=== PATIENT | female | born 1980 | race Caucasian/White ===

== ENCOUNTER → 2018-07-03 | Outpatient (CLI) | payer OTHER ==
[2018-07-07 14:08] LABS: HPV 16 Negative (Negative); HPV 18 Negative (Negative); HPV OTHER HR TYPES Negative (Negative)
== END | disposition home or self-care (01) ==
LOC: LAB SHORT 15:54 → LAB 15:54
PROVIDERS: Obstetrics & Gynecology
DX: Z01.419 Encounter for gynecological examination (general) (routine) without abnormal findings (principal)
CPT/HCPCS: 87624; G0123

== ENCOUNTER → 2018-08-19 | Outpatient (CLI) | payer OTHER | END | disposition home or self-care (01) | LOC: PLD 08:02 → LAB SHORT 08:02 | DX: N72 Inflammatory disease of cervix uteri (principal) | CPT/HCPCS: 88305 ==

== ENCOUNTER 2018-11-26 10:22 | Emergency (ER) | payer OTHER ==
[~2018-11-26] VITALS: Ht 162.6 cm; Wt 62.6 kg
[2018-11-26] MEDS ORDERED: Robaxin-750750 MG PO (12:16)
[2018-11-26] MEDS ORDERED: NAPR550 PO (12:16)
== END 2018-11-26 12:29 | disposition home or self-care (01) ==
LOC: ER 10:22
DX: S46.912A Strain of unspecified muscle, fascia and tendon at shoulder and upper arm level, left arm, initial encounter (principal); X58.XXXA Exposure to other specified factors, initial encounter; Z91.030 Bee allergy status; Z88.0 Allergy status to penicillin; Z91.013 Allergy to seafood; Z79.899 Other long term (current) drug therapy; Z87.891 Personal history of nicotine dependence
CPT/HCPCS: 73030; 99283-25

== ENCOUNTER 2019-03-26 08:17 | Emergency (ER) | payer OTHER ==
[~2019-03-26] VITALS: Ht 157.5 cm; Wt 72.6 kg
[~2019-03-26 08:17] MED LIST: NAPR550 PO; Robaxin-750750 MG PO
[2019-03-26] MEDS ORDERED: BUSP10 PO (08:41)
[2019-03-26] MEDS ORDERED: GABA800 PO (08:41)
[2019-03-26] MEDS ORDERED: DIVA500ER PO (08:41)
[2019-03-26] MEDS ORDERED: DULO60 PO (08:42)
[2019-03-26] MEDS ORDERED: Procardia10 MG PO (08:42)
[2019-03-26] MEDS ORDERED: AMIT25 PO (08:42)
[2019-03-26] MEDS ORDERED: PRAZ1 (08:42)
[2019-03-26] MEDS ORDERED: PANT20 PO (08:43)
[2019-03-26] MEDS ORDERED: MAGNESIUM OXID500 MG PO (08:44)
[2019-03-26] MEDS ORDERED: FOLBIC RF TABL1 EACH PO (08:44)
[2019-03-26] MEDS ORDERED: VITAMIN D31000 UNI3 PO (08:44)
[2019-03-26 09:01] LABS: BASOPHILS ABSOLUTE AUTO 0.04 K/mm3 (0.00-0.23); BASOPHILS PERCENT AUTO 1 % (0-2); EOSINOPHILS ABSOLUTE AUTO 0.19 K/mm3 (0.00-0.68); EOSINOPHILS PERCENT AUTO 3 % (0-6); Hemoglobin 13.5 g/dL (11.5-16.0); IMMATURE GRAN ABSOLUTE AUTO 0.03 K/mm3 (0.00-0.10); IMMATURE GRAN PERCENT AUTO 1 % (0-1); LYMPHOCYTES ABSOLUTE AUTO 1.95 K/mm3 (0.84-5.20); LYMPHOCYTES PERCENT AUTO 35 % (21-46); MONOCYTES ABSOLUTE AUTO 0.37 K/mm3 (0.16-1.47); MONOCYTES PERCENT AUTO 7 % (4-13); Mean Corpuscular HGB 29.5 pg (26.0-34.0); Mean Corpuscular HGB Conc 32.9 g/dL (31.5-36.5); Mean Corpuscular Volume 90 fL (80-100); Mean Platelet Volume 9.9 fL (9.1-12.4); NEUTROPHILS ABSOLUTE AUTO 2.96 K/mm3 (1.96-9.15); NEUTROPHILS PERCENT AUTO 54 % (41-73); Platelet Count 271 K/mm3 (150-400); RDW Standard Deviation 42.6 fL (35.1-46.3); Red Blood Cell Count 4.57 M/mm3 (3.80-5.20); White Blood Cell Count 5.54 K/mm3 (4.00-11.30)
[2019-03-26 09:22] LABS: Source, Urine Clean Catch
[2019-03-26 09:32] LABS: Alanine Aminotransfer (ALT/SGP 20 U/L (12-78); Albumin, Blood 3.8 g/dL (3.4-5.0); Alk Phos 52 U/L (50-136); Anion Gap 8 mmol/L (6-16); Aspartate Aminotrans (AST/SGOT 9 U/L (12-37); Bilirubin, Total 0.2 mg/dL (0.1-1.0); Blood Urea Nitrogen 10 mg/dL (8-24); Bun/Creatinine Ratio 19.5 (12.0-20.0); CO2, Blood 24 mmol/L (21-32); Calcium, Blood 8.7 mg/dL (8.5-10.1); Chloride, Blood 109 mmol/L (98-108); Creatinine, Blood 0.51 mg/dL (0.40-1.00); Globulin, Blood 3.8 g/dL (2.2-4.0); Glomerular Filtration Rate >60 (60-); Glucose, Blood 96 mg/dL (70-99); Potassium, Blood 3.9 mmol/L (3.5-5.5); Sodium, Blood 141 mmol/L (136-145); Total Protein, Blood 7.6 g/dL (6.4-8.2)
[2019-03-26 09:33] LABS: Appearance, Urine Clear (Clear); Bilirubin, Urine Neg (Neg); Blood, Urine Neg (Neg); Color, Urine Yellow (P-Yellow); Glucose Qualitative, Urine Neg (Neg); Ketones, Urine Neg (Neg); Leukocyte Esterase, Urine Neg (Neg); Nitrite, Urine Neg (Neg); Protein, Urine Neg (Neg); Urobilinogen, Urine NORM (Normal)
== END 2019-03-26 10:10 | disposition home or self-care (01) ==
LOC: ER 08:17
PROVIDERS: Emergency Medicine
DX: M62.830 Muscle spasm of back (principal); F41.9 Anxiety disorder, unspecified; Z88.0 Allergy status to penicillin; Z79.899 Other long term (current) drug therapy
CPT/HCPCS: 36415; 80053; 81003; 81025; 85025; 96374; 96375; 99283-25; J2060; J3010

== ENCOUNTER 2020-03-03 06:12 | Day surgery (SDC) | payer OTHER ==
[~2020-03-03] VITALS: Ht 162.6 cm; Wt 57.8 kg
[~2020-03-03 06:12] MED LIST changes: +AMIT25 PO; +BUSP10 PO; +Bentyl10 MG PO; +CLEM1.34 PO; +DIVA125EC PO; +DIVA500ER PO; +DULO60 PO; +FOLBIC RF TABL1 EACH PO; +GABA800 PO; +MAGNESIUM OXID500 MG PO; +NIFE10 PO; +PANT20 PO; +PRAZ1; +PROBIOTIC PO; +Procardia10 MG PO; +VITAMIN B125000 MC1 PO; +VITAMIN D31000 UNI3 PO; +VITAMIN D325 MC3 PO; +Zofran4 MG PO
--- NOTE | 2020-03-03 06:48 | NUR ---
History, Chart, Medications and Allergies reviewed before start of procedure. Lungs clear T/O to Auscultation. Pre-Op teaching done. Pt verbalizes understanding. Patient confirms NPO status and agrees with scheduled surgery. Patient reports completing Chlorhexadine shower X2 prior to admission to hospital.
--- NOTE | 2020-03-03 11:13 | NUR ---
pt arrived to room via stretcher, a/o x 4, pleasant/cooperative, drowsy but answers questions appropriately. pt requested to use bedside commode, states her bladder feels full. SO in room with pt. post op vs commenced. pt denies nausea, no vomiting
--- NOTE | 2020-03-03 12:59 | NUR ---
post op vss, pt oob to commode x 2 since transferring to room. pt tolerating slow po intake, states stomach is mildly nauseous. pt voided 200 ml, some bleeding while on commode
--- NOTE | 2020-03-03 14:15 | NUR ---
provided pt with discharge instructions, removed peripheral IV wnl. pt voided x 3, ambulated into the bathroom, rates pain at 4-5/10 while moving, 1-2/10 while still, is able to sleep/rest. pt tolerated PO intake with no n/v. pt and state understanding of discharge instructions. pt transferred to awaiting medical transport via wheelchair, pt's carrying pt's belongings.
== END 2020-03-03 14:38 | disposition home or self-care (01) ==
LOC: ORSCMMR 06:12 → ORD 07:30 → ORSCMMR 07:30 → SURS 11:04 → ORSCMMR 11:04 → SURS 14:38 → ORSCMMR 14:38
PROVIDERS: Obstetrics & Gynecology
PROC: 0UT94ZZ Resection of Uterus, Percutaneous Endoscopic Approach (ICD-10-PCS; principal; 2020-03-03 07:30)
PROC: 0UT74ZZ Resection of Bilateral Fallopian Tubes, Percutaneous Endoscopic Approach (ICD-10-PCS; principal; 2020-03-03 07:30)
PROC: 8E0Y4CZ Robotic Assisted Procedure of Lower Extremity, Percutaneous Endoscopic Approach (ICD-10-PCS; principal; 2020-03-03 07:30)
PROC: 0UT14ZZ Resection of Left Ovary, Percutaneous Endoscopic Approach (ICD-10-PCS; principal; 2020-03-03 07:30)
DX: N87.9 Dysplasia of cervix uteri, unspecified (principal); N92.0 Excessive and frequent menstruation with regular cycle; K21.9 Gastro-esophageal reflux disease without esophagitis; R56.9 Unspecified convulsions; F41.9 Anxiety disorder, unspecified
CPT/HCPCS: 58571; S2900; J1100; J1580; J1885; J2250; J2370; J2405; J2704; J2765; J3010; J7120

== ENCOUNTER 2021-04-01 16:08 | Emergency (ER) | payer OTHER ==
[~2021-04-01] VITALS: Ht 162.6 cm; Wt 62.6 kg
[2021-04-01] MEDS ORDERED: OMEGA-3 FISH O1 EAC6 PO (17:22)
[2021-04-01] MEDS ORDERED: POTA8 PO (17:23)
[2021-04-01 17:41] LABS: BASOPHILS ABSOLUTE AUTO 0.02 K/mm3 (0.00-0.23); BASOPHILS PERCENT AUTO 0 % (0-2); EOSINOPHILS ABSOLUTE AUTO 0.02 K/mm3 (0.00-0.68); EOSINOPHILS PERCENT AUTO 0 % (0-6); Hemoglobin 14.4 g/dL (11.5-16.0); IMMATURE GRAN ABSOLUTE AUTO 0.05 K/mm3 (0.00-0.10); IMMATURE GRAN PERCENT AUTO 1 % (0-1); LYMPHOCYTES ABSOLUTE AUTO 1.41 K/mm3 (0.84-5.20); LYMPHOCYTES PERCENT AUTO 15 % (21-46); MONOCYTES ABSOLUTE AUTO 0.48 K/mm3 (0.16-1.47); MONOCYTES PERCENT AUTO 5 % (4-13); Mean Corpuscular HGB 30.1 pg (26.0-34.0); Mean Corpuscular HGB Conc 34.3 g/dL (31.5-36.5); Mean Corpuscular Volume 88 fL (80-100); Mean Platelet Volume 9.9 fL (9.1-12.4); NEUTROPHILS ABSOLUTE AUTO 7.49 K/mm3 (1.96-9.15); NEUTROPHILS PERCENT AUTO 79 % (41-73); Platelet Count 272 K/mm3 (150-400); RDW Standard Deviation 38.8 fL (35.1-46.3); Red Blood Cell Count 4.79 M/mm3 (3.80-5.20); White Blood Cell Count 9.47 K/mm3 (4.00-11.30)
[2021-04-01 18:12] LABS: Alanine Aminotransfer (ALT/SGP 19 U/L (12-78); Albumin/Globulin Ratio 1.2 (0.8-1.8); Alk Phos 64 U/L (50-136); Anion Gap 7 mmol/L (6-16); Aspartate Aminotrans (AST/SGOT 11 U/L (12-37); Bilirubin, Total 0.6 mg/dL (0.1-1.0); Blood Urea Nitrogen 9 mg/dL (8-24); Bun/Creatinine Ratio 18.6 (12.0-20.0); CO2, Blood 26 mmol/L (21-32); Calcium, Blood 8.8 mg/dL (8.5-10.1); Chloride, Blood 106 mmol/L (98-108); Creatinine, Blood 0.48 mg/dL (0.40-1.00); Globulin, Blood 3.4 g/dL (2.2-4.0); Glomerular Filtration Rate >60 (60-); Glucose, Blood 92 mg/dL (70-99); Potassium, Blood 3.8 mmol/L (3.5-5.5); Sodium, Blood 139 mmol/L (136-145); Total Protein, Blood 7.4 g/dL (6.4-8.2)
[2021-04-01 18:17] LABS: Influenza A, PCR NEGATIVE (NEGATIVE); Influenza B, PCR NEGATIVE (NEGATIVE); Resp Syncytial Virus, PCR NEGATIVE (NEGATIVE); SARS-Cov-2 (COVID-19) PCR, MMC NEGATIVE (NEGATIVE)
[2021-04-01 18:37] LABS: Source, Urine Clean Catch
[2021-04-01 18:45] LABS: Appearance, Urine Clear (Clear); Bilirubin, Urine Neg (Neg); Blood, Urine Neg (Neg); Color, Urine Yellow (P-Yellow); Glucose Qualitative, Urine Neg (Neg); Ketones, Urine 2+ (Neg); Leukocyte Esterase, Urine Neg (Neg); Nitrite, Urine Neg (Neg); Protein, Urine Neg (Neg); Specific Gravity, Urine 1.005 (1.003-1.022); Urobilinogen, Urine NORM (Normal)
[2021-04-01] MEDS ORDERED: OXYC5 PO (20:28)
== END 2021-04-01 21:14 | disposition home or self-care (01) ==
LOC: ER 16:08
PROVIDERS: Emergency Medicine; Physician Assistant
DX: R10.2 Pelvic and perineal pain (principal); Z20.822 Contact with and (suspected) exposure to COVID-19; Z88.0 Allergy status to penicillin; Z91.013 Allergy to seafood; Z91.012 Allergy to eggs; Z91.030 Bee allergy status; Z79.899 Other long term (current) drug therapy
CPT/HCPCS: 0241U; 36415; 74177; 76830; 76856; 80053; 81003; 85025; 93005; 93010; 96374; 96375; 99284-25; J1170; J1885; J2405; Q9967

== ENCOUNTER 2022-04-18 12:40 | Emergency (ER) | payer OTHER ==
[~2022-04-18] VITALS: Ht 162.6 cm; Wt 72.6 kg
[~2022-04-18 12:40] MED LIST changes: +ALORA TD; +EPIPEN0.3 MG/0.3 IM; +IBUP800 PO; +MULVITA PO; +OMEGA-3 FISH O1 EAC6 PO; +OXYC5 PO; +POTA8 PO; +PROBIOTIC1 EA13 PO
[2022-04-18] MEDS ORDERED: IBUP600 PO (14:43)
[2022-04-18] MEDS ORDERED: Norco 5-325 Ta1 EACH PO (14:43)
== END 2022-04-18 15:30 | disposition home or self-care (01) ==
LOC: ER 12:40
DX: M54.9 Dorsalgia, unspecified (principal); G89.29 Other chronic pain; Z91.012 Allergy to eggs; Z88.0 Allergy status to penicillin; Z91.030 Bee allergy status; Z91.013 Allergy to seafood; Z91.02 Food additives allergy status; Z79.899 Other long term (current) drug therapy
CPT/HCPCS: A9270; J1170; J2405

== ENCOUNTER 2022-08-07 15:53 | Observation (INO) | payer OTHER ==
[~2022-08-07] VITALS: Ht 162.6 cm; Wt 79.3 kg
[~2022-08-07 15:53] MED LIST changes: +IBUP600 PO; +Norco 5-325 Ta1 EACH PO
[2022-08-07 17:06] LABS: BASOPHILS ABSOLUTE AUTO 0.02 K/mm3 (0.00-0.23); BASOPHILS PERCENT AUTO 0 % (0-2); EOSINOPHILS ABSOLUTE AUTO 0.11 K/mm3 (0.00-0.68); EOSINOPHILS PERCENT AUTO 2 % (0-6); Hematocrit 40.4 % (33.0-51.0); Hemoglobin 13.8 g/dL (11.5-16.0); IMMATURE GRAN ABSOLUTE AUTO 0.02 K/mm3 (0.00-0.10); IMMATURE GRAN PERCENT AUTO 0 % (0-1); LYMPHOCYTES ABSOLUTE AUTO 1.98 K/mm3 (0.84-5.20); LYMPHOCYTES PERCENT AUTO 34 % (21-46); MONOCYTES ABSOLUTE AUTO 0.52 K/mm3 (0.16-1.47); MONOCYTES PERCENT AUTO 9 % (4-13); Mean Corpuscular HGB 29.1 pg (26.0-34.0); Mean Corpuscular HGB Conc 34.2 g/dL (31.5-36.5); Mean Corpuscular Volume 85 fL (80-100); Mean Platelet Volume 10.1 fL (9.1-12.4); NEUTROPHILS ABSOLUTE AUTO 3.17 K/mm3 (1.96-9.15); NEUTROPHILS PERCENT AUTO 55 % (41-73); Platelet Count 284 K/mm3 (150-400); RDW Coefficient Variation 12.7 % (11.7-14.2); Red Blood Cell Count 4.75 M/mm3 (3.80-5.20); White Blood Cell Count 5.82 K/mm3 (4.00-11.30)
[2022-08-07 17:38] LABS: Albumin/Globulin Ratio 1.2 (0.8-1.8); Bilirubin, Total 0.4 mg/dL (0.1-1.0); Bun/Creatinine Ratio 12.2 (12.0-20.0); Calcium, Blood 9.1 mg/dL (8.5-10.1); Creatinine, Blood 0.57 mg/dL (0.40-1.00); Globulin, Blood 3.4 g/dL (2.2-4.0); Potassium, Blood 3.5 mmol/L (3.5-5.5); Total Protein, Blood 7.4 g/dL (6.4-8.2)
[2022-08-07 21:23] VITALS: BP 142/77
[2022-08-08] VITALS (9 sets, daily range): BP systolic 98–131; BP diastolic 54–79
--- NOTE | 2022-08-08 06:24 | NUR ---
PATIENT ARRIVED TO THE UNIT ALERT AND ORIENTED X4, COOPERATIVE WITH CARE. NPO SINCE MIDNIGHT. TELE RUNNING NS PER LAST REPORT. POSSIBLE STENT PLACEMENT TODAY. IND IN ROOM. PAIN TREATED PER JUN.
--- NOTE | 2022-08-08 09:03 | NUR ---
PT WITH ACTIVE CHEST PAIN AT 8-9 LEVEL. DESCRIBED PRESSURE WHICH IS THE SAME BEFORE WITH RADIATION TO L SHOULDER AND BACK. ORDER RECEIVED FOR NITRO AND 1 GIVEN WITH EFFECT. PAIN DOWN TO 4 AND REPORTS MUCH BETTER. CALLED [facility] FOR UPDATE OF POSSIBLE PROCEDURE AND NOT ON SCHEDULE YET. MADE PT AWARE AND ENCOURAGED HER TO CALL FOR FURTHER ASSISTANCE.
--- NOTE | 2022-08-08 12:30 | NUR ---
PT PICKED UP BY [facility] VIA W/C AND TRANSPORTED FOR PROCEDURE. SEEN BY DR. SHEARER EARLIER TODAY WITH ANGIOGRAM PLANNED. REPORT CALLED TO JONATHAN ABRAHAM IN PCU.
--- NOTE | 2022-08-08 12:40 | NUR ---
Telephone report from JARAD Arevalo . 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
--- NOTE | 2022-08-08 13:41 | NUR ---
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 She states she is having no pain/discomfort except for some nausea which she thinks is due to not eating since yesterday. A cardiac vegan gluten free diet tray is on order for her. She asked for ice water and cranberry juice, which were provided. Vital signs are stable. Normal sinus rhythm noted by bedside monitoring manager. Lung sounds are clear. TR band visualized at bedside upon her arrival with heart center RNs. It is in place, without any bleeding, bruising, hematoma nor edema noted. Distal pulse palpated. Cap refill is less than 3 seconds on the right hand. TR band on right wrist in place. Pt states that she normally uses a cane for ambulation, due to back pain. She has her cane with her, but since she uses her right hand to hold the cane, we recommended that she call staff for assistance and use the bedside commode for toileting during her recovery period. She agreed with this. Call light is in reach.
--- NOTE | 2022-08-08 14:53 | NUR ---
2 cc air removed from TR band on right wrist. Site remains WNL.
== END 2022-08-08 17:17 | disposition home or self-care (01) ==
LOC: ER 15:53 → MEDS 15:54 → PCU 08-08 12:32
PROVIDERS: Student in an Organized Health Care Education/Training Program; ADMIT Internal Medicine
DX: I49.3 Ventricular premature depolarization (principal); M79.7 Fibromyalgia; I73.00 Raynaud's syndrome without gangrene; K90.0 Celiac disease; F43.10 Post-traumatic stress disorder, unspecified; M48.00 Spinal stenosis, site unspecified; R94.39 Abnormal result of other cardiovascular function study; Z88.0 Allergy status to penicillin; Z79.899 Other long term (current) drug therapy; Z79.890 Hormone replacement therapy; Z87.891 Personal history of nicotine dependence
CPT/HCPCS: 36415; 71046; 76937; 80053; 83690; 84484; 85025; 93005; 93010; 93458; 96360; 96361; 96372; 96374; 99152; 99153; 99285-25; A9270; C1769; C1887; C1894; G0378; J1644; J2250; J3010; J7030; J7050; Q9967

== ENCOUNTER 2024-03-29 21:35 | Emergency (ER) | payer OTHER ==
[~2024-03-29] VITALS: Ht 162.6 cm; Wt 59.0 kg
[2024-03-29 22:56] LABS: BASOPHILS ABSOLUTE AUTO 0.03 K/mm3 (0.00-0.23); BASOPHILS PERCENT AUTO 1 % (0-2); EOSINOPHILS PERCENT AUTO 2 % (0-6); Hematocrit 40.2 % (33.0-51.0); Hemoglobin 13.8 g/dL (11.5-16.0); IMMATURE GRAN ABSOLUTE AUTO 0.01 K/mm3 (0.00-0.10); IMMATURE GRAN PERCENT AUTO 0 % (0-1); LYMPHOCYTES ABSOLUTE AUTO 2.01 K/mm3 (0.84-5.20); LYMPHOCYTES PERCENT AUTO 34 % (21-46); MONOCYTES ABSOLUTE AUTO 0.49 K/mm3 (0.16-1.47); MONOCYTES PERCENT AUTO 8 % (4-13); Mean Corpuscular HGB 29.6 pg (26.0-34.0); Mean Corpuscular HGB Conc 34.3 g/dL (31.5-36.5); Mean Corpuscular Volume 86 fL (80-100); Mean Platelet Volume 10.3 fL (9.1-12.4); NEUTROPHILS ABSOLUTE AUTO 3.33 K/mm3 (1.96-9.15); NEUTROPHILS PERCENT AUTO 56 % (41-73); Platelet Count 264 K/mm3 (150-400); RDW Coefficient Variation 12.6 % (11.7-14.2); RDW Standard Deviation 39.7 fL (35.1-46.3); Red Blood Cell Count 4.67 M/mm3 (3.80-5.20); White Blood Cell Count 5.97 K/mm3 (4.00-11.30)
[2024-03-29 23:25] LABS: Albumin, Blood 4.2 g/dL (3.4-5.0); Albumin/Globulin Ratio 1.4 (0.8-1.8); Bilirubin, Total 0.6 mg/dL (0.1-1.0); Bun/Creatinine Ratio 12.2 (12.0-20.0); Creatinine, Blood 0.49 mg/dL (0.40-1.00); Globulin, Blood 3.1 g/dL (2.2-4.0); Potassium, Blood 3.8 mmol/L (3.5-5.5); Total Protein, Blood 7.3 g/dL (6.4-8.2)
[2024-03-29] MEDS ORDERED: Lidocaine 2% Viscous Soln 15 ML UDC PO ONE (23:40)
[2024-03-29] MEDS ORDERED: Mag Hydrox/AL Hydrox/Simeth 30 ML UDC PO ONE (23:40)
[2024-03-29] MEDS ORDERED: Atropine/Scopalam/Hyoscam/PB 5 ML UDC PO ONE (23:40)
[2024-03-30] VITALS: BP 109/79
[2024-03-30] MEDS ORDERED: Ketorolac Tromethamine 30mg Vial IV ONE (00:25)
[2024-03-30] MEDS ORDERED: NS 1,000 ML IV SCH (00:25)
[2024-03-30] MEDS ORDERED: Ondansetron HCl 2 MG / ML 2ML Vial IV ONE (00:25)
[2024-03-30] MEDS ORDERED: Dicyclomine HCl 20 MG Tab PO ONE (01:20)
[2024-03-30] MEDS ORDERED: OxyCODONE HCL 5 MG TAB PO ONE (01:20)
[2024-03-30] MEDS ORDERED: DICY20 PO (01:52)
[2024-03-30] MEDS ORDERED: ONDA4ODT MM (01:52)
[2024-03-30] MEDS ORDERED: RX Prepack 2 Tabs Ondansetron ODT 4MG UD ONE (01:55)
== END 2024-03-30 02:05 | disposition home or self-care (01) ==
LOC: ER 21:35
PROVIDERS: Physician Assistant
DX: K85.90 Acute pancreatitis without necrosis or infection, unspecified (principal); F43.10 Post-traumatic stress disorder, unspecified; Z79.899 Other long term (current) drug therapy; Z91.012 Allergy to eggs; Z88.0 Allergy status to penicillin; Z91.013 Allergy to seafood; Z91.018 Allergy to other foods
CPT/HCPCS: 80053; 83690; 85025; 96361; 96374; 96375; 99284; A9270; J1885; J2405; J7030

== ENCOUNTER 2024-04-04 13:31 | Emergency (ER) | payer OTHER ==
[~2024-04-04] VITALS: Ht 162.6 cm; Wt 54.4 kg
[~2024-04-04 13:31] MED LIST changes: +DICY20 PO; +ONDA4ODT MM
[2024-04-04] MEDS ORDERED: OXYC5 PO (14:16)
[2024-04-04] MEDS ORDERED: Ondansetron 4 MG SoluTab SL PRN (14:20)
[2024-04-04 14:55] LABS: BASOPHILS ABSOLUTE AUTO 0.02 K/mm3 (0.00-0.23); BASOPHILS PERCENT AUTO 0 % (0-2); EOSINOPHILS ABSOLUTE AUTO 0.06 K/mm3 (0.00-0.68); EOSINOPHILS PERCENT AUTO 1 % (0-6); Hematocrit 40.1 % (33.0-51.0); Hemoglobin 14.1 g/dL (11.5-16.0); IMMATURE GRAN ABSOLUTE AUTO 0.01 K/mm3 (0.00-0.10); IMMATURE GRAN PERCENT AUTO 0 % (0-1); LYMPHOCYTES ABSOLUTE AUTO 2.09 K/mm3 (0.84-5.20); LYMPHOCYTES PERCENT AUTO 36 % (21-46); MONOCYTES ABSOLUTE AUTO 0.47 K/mm3 (0.16-1.47); MONOCYTES PERCENT AUTO 8 % (4-13); Mean Corpuscular HGB 29.7 pg (26.0-34.0); Mean Corpuscular HGB Conc 35.2 g/dL (31.5-36.5); Mean Corpuscular Volume 85 fL (80-100); Mean Platelet Volume 10.2 fL (9.1-12.4); NEUTROPHILS ABSOLUTE AUTO 3.11 K/mm3 (1.96-9.15); NEUTROPHILS PERCENT AUTO 54 % (41-73); Platelet Count 254 K/mm3 (150-400); RDW Coefficient Variation 12.4 % (11.7-14.2); RDW Standard Deviation 38.4 fL (35.1-46.3); Red Blood Cell Count 4.74 M/mm3 (3.80-5.20); White Blood Cell Count 5.76 K/mm3 (4.00-11.30)
[2024-04-04 15:16] LABS: Albumin, Blood 4.2 g/dL (3.4-5.0); Albumin/Globulin Ratio 1.3 (0.8-1.8); Bilirubin, Total 0.7 mg/dL (0.1-1.0); Calcium, Blood 8.9 mg/dL (8.5-10.1); Creatinine, Blood 0.67 mg/dL (0.40-1.00); Globulin, Blood 3.3 g/dL (2.2-4.0); Potassium, Blood 3.8 mmol/L (3.5-5.5); Total Protein, Blood 7.5 g/dL (6.4-8.2)
[2024-04-04] MEDS ORDERED: Morphine Sulfate 4 MG/1 ML Injection IV ONE ×3 (15:50→21:35)
[2024-04-04] MEDS ORDERED: Ondansetron HCl 2 MG / ML 2ML Vial IV ONE (15:50)
[2024-04-04] MEDS ORDERED: Prochlorperazine Edisylate 10 mg Vial IV ONE (21:35)
[2024-04-04] MEDS ORDERED: RX Prepack 2 Tabs Ondansetron ODT 4MG UD ONE (21:40)
[2024-04-04] MEDS ORDERED: ONDA4ODT MM (21:41)
[2024-04-04 22:00] VITALS: BP 127/79
== END 2024-04-04 22:05 | disposition home or self-care (01) ==
LOC: ER 13:31
PROVIDERS: Student in an Organized Health Care Education/Training Program
DX: R10.11 Right upper quadrant pain (principal); R11.10 Vomiting, unspecified; K90.0 Celiac disease; Z88.0 Allergy status to penicillin; Z91.030 Bee allergy status; Z91.012 Allergy to eggs; Z91.013 Allergy to seafood; Z91.018 Allergy to other foods; Z79.899 Other long term (current) drug therapy
CPT/HCPCS: 74177; 80053; 83690; 85025; 96374-59; 96375; 96376; 99284-25; A9270; J0780; J2270; J2405; Q9967

== ENCOUNTER 2024-04-23 17:32 | Observation (INO) | payer OTHER ==
[~2024-04-23] VITALS: Ht 162.6 cm; Wt 54.4 kg
[~2024-04-23 17:32] MED LIST changes: -ALORA TD; +ALORA1 EA11 TOP
[2024-04-23 20:50] LABS: BASOPHILS ABSOLUTE AUTO 0.03 K/mm3 (0.00-0.23); BASOPHILS PERCENT AUTO 1 % (0-2); EOSINOPHILS ABSOLUTE AUTO 0.04 K/mm3 (0.00-0.68); EOSINOPHILS PERCENT AUTO 1 % (0-6); Hematocrit 37.1 % (33.0-51.0); Hemoglobin 12.9 g/dL (11.5-16.0); IMMATURE GRAN ABSOLUTE AUTO 0.03 K/mm3 (0.00-0.10); IMMATURE GRAN PERCENT AUTO 1 % (0-1); LYMPHOCYTES ABSOLUTE AUTO 1.63 K/mm3 (0.84-5.20); LYMPHOCYTES PERCENT AUTO 28 % (21-46); MONOCYTES ABSOLUTE AUTO 0.39 K/mm3 (0.16-1.47); MONOCYTES PERCENT AUTO 7 % (4-13); Mean Corpuscular HGB 29.6 pg (26.0-34.0); Mean Corpuscular HGB Conc 34.8 g/dL (31.5-36.5); Mean Corpuscular Volume 85 fL (80-100); NEUTROPHILS ABSOLUTE AUTO 3.65 K/mm3 (1.96-9.15); NEUTROPHILS PERCENT AUTO 63 % (41-73); RDW Coefficient Variation 12.5 % (11.7-14.2); RDW Standard Deviation 38.6 fL (35.1-46.3); Red Blood Cell Count 4.36 M/mm3 (3.80-5.20); White Blood Cell Count 5.77 K/mm3 (4.00-11.30)
[2024-04-23 20:53] LABS: Mean Platelet Volume 10.7 fL (9.1-12.4)
[2024-04-23 21:06] LABS: Alanine Aminotransfer (ALT/SGP 16 U/L (12-78); Albumin, Blood 3.9 g/dL (3.4-5.0); Albumin/Globulin Ratio 1.3 (0.8-1.8); Alk Phos 53 U/L (50-136); Anion Gap 12 mmol/L (3-11); Aspartate Aminotrans (AST/SGOT 17 U/L (12-37); Bilirubin, Direct <0.1 mg/dL (0.0-0.3); Bilirubin, Total 0.4 mg/dL (0.1-1.0); Blood Urea Nitrogen 8 mg/dL (8-24); Bun/Creatinine Ratio 14.7 (12.0-20.0); CO2, Blood 22 mmol/L (21-32); Chloride, Blood 113 mmol/L (98-108); Creatinine, Blood 0.55 mg/dL (0.40-1.00); Glomerular Filtration Rate 116 (60-); Glucose, Blood 81 mg/dL (70-99); Magnesium, Blood 2.1 mg/dL (1.6-2.4); Potassium, Blood 3.6 mmol/L (3.5-5.5); Sodium, Blood 143 mmol/L (136-145); Total Protein, Blood 6.9 g/dL (6.4-8.2)
[2024-04-23 21:25] LABS: Platelet Count 148 K/mm3 (150-400)
[2024-04-23] MEDS ORDERED: Ondansetron HCl 2 MG / ML 2ML Vial IV ONE (22:45)
[2024-04-23] MEDS ORDERED: Morphine Sulfate 4 MG/1 ML Injection IV ONE (23:50)
[2024-04-23] MEDS ORDERED: NS 1,000 ML IV SCH (23:50)
[2024-04-24 02:50] LABS: Source, Urine Clean Catch
[2024-04-24 03:06] LABS: Bilirubin, Urine Neg (Neg); Blood, Urine Neg (Neg); Glucose Qualitative, Urine Neg (Neg); Ketones, Urine 3+ (Neg); Leukocyte Esterase, Urine Neg (Neg); Nitrite, Urine Neg (Neg); Protein, Urine Neg (Neg); Urobilinogen, Urine NORM (Normal); pH, Urine 6.5 (5.0-8.0)
[2024-04-24 03:15] LABS: Appearance, Urine Clear (Clear); Color, Urine Pale Yellow (P-Yellow)
[2024-04-24] MEDS ORDERED: Morphine Sulfate 10 MG/ML 1MLSYR IV ONE ×2 (04:00→06:30)
[2024-04-24] MEDS ORDERED: CefTRIAXone Sodium 1,000 MG in NS 50 ML IV ONE (06:30)
[2024-04-24] MEDS ORDERED: Ondansetron HCl 2 MG / ML 2ML Vial IV ONE (06:30)
[2024-04-24] MEDS ORDERED: HYDROmorphone HCl/Pf 1MG SYR IV PRN (07:45)
[2024-04-24] MEDS ORDERED: Indocyanine Green 25 MG Vial IV ONE (08:00)
[2024-04-24] MEDS ORDERED: Ciprofloxacin 400MG/D5 200ML 200 ML IV SCH (09:30)
[2024-04-24 09:34] VITALS: BP 160/83
[2024-04-24] MEDS ORDERED: POTCHL20ER PO (09:40)
--- NOTE | 2024-04-24 09:50 | NUR ---
ADMIT NEW ER ADMIT. PT A+O X4. ABLE TO INDEPENDENTLY AMBULATE TO BATHROOM WITH PERSONAL CANE TO VOID. ORIENTED TO ROOM AND CALL LIGHT. EDUCATED PT ON NPO STATUS AND POTENTIAL SURGERY TIME. PRIMARY RN LC TO ASSUME CARE AT THIS TIME.
[2024-04-24] MEDS ORDERED: Ondansetron HCl 2 MG / ML 2ML Vial IV PRN (09:55)
[2024-04-24] MEDS ORDERED: Lactated Ringer's 1,000 ML IV SCH (10:00)
[2024-04-24] MEDS ORDERED: NS 250 ML IV PRN (10:40)
[2024-04-24 14:47] VITALS: BP 149/97
[2024-04-24] MEDS ORDERED: LORazepam 2 MG/ML 1ML Injection IV PRN (15:40)
[2024-04-24] MEDS ORDERED: Scopolamine Hydrobromide Patch TOP ONE (15:45)
--- NOTE | 2024-04-24 16:05 | NUR ---
SUMMARY: NO ACUTE CHANGE SINCE ADMISSION. VSS. PT HAS HAD SOME NAUSEA AND PAIN. MEDICATED PER EMAR. GIVEN ATIVAN X1. FLUIDS AND ANTIBIOTICS INFUSED. PLAN IS NPO AT 0000, LAP TATIANA TOMORROW. PT USING CALL LIGHT AND MAKES NEEDS KNOWN.
[2024-04-24 19:44] VITALS: BP 104/66
[2024-04-25] VITALS (22 sets, daily range): BP systolic 101–153; BP diastolic 57–89
--- NOTE | 2024-04-25 04:20 | NUR ---
SHIFT SUMMARY ASHLEIGH WAS ALERT AND FULLY ORIENTED ON ASSESMENT. PT WALKS WITH CANE AT BASELINE, ABLE TO AMBULATE WITH SBA. URINE SAMPLE COLLECTED THIS SHIFT TO RULE OUT . PT PAIN RESPONDING WELL TO DILAUDED, ZOFRAN GIVEN WITH PAIN MEDS FOR NAUSEA. ONE EPISODE OF EMESIS EARLY IN SHIFT. NO ACUTE EVENTS TONIGHT. PT AWAITING SURGERY ON .
[2024-04-25 05:50] LABS: BASOPHILS ABSOLUTE AUTO 0.02 K/mm3 (0.00-0.23); BASOPHILS PERCENT AUTO 0 % (0-2); EOSINOPHILS ABSOLUTE AUTO 0.06 K/mm3 (0.00-0.68); EOSINOPHILS PERCENT AUTO 1 % (0-6); Hematocrit 40.2 % (33.0-51.0); Hemoglobin 13.7 g/dL (11.5-16.0); IMMATURE GRAN ABSOLUTE AUTO 0.01 K/mm3 (0.00-0.10); IMMATURE GRAN PERCENT AUTO 0 % (0-1); LYMPHOCYTES ABSOLUTE AUTO 1.74 K/mm3 (0.84-5.20); LYMPHOCYTES PERCENT AUTO 31 % (21-46); MONOCYTES ABSOLUTE AUTO 0.43 K/mm3 (0.16-1.47); MONOCYTES PERCENT AUTO 8 % (4-13); Mean Corpuscular HGB 29.7 pg (26.0-34.0); Mean Corpuscular HGB Conc 34.1 g/dL (31.5-36.5); Mean Corpuscular Volume 87 fL (80-100); Mean Platelet Volume 9.9 fL (9.1-12.4); NEUTROPHILS ABSOLUTE AUTO 3.37 K/mm3 (1.96-9.15); NEUTROPHILS PERCENT AUTO 60 % (41-73); Platelet Count 257 K/mm3 (150-400); RDW Coefficient Variation 12.8 % (11.7-14.2); RDW Standard Deviation 40.4 fL (35.1-46.3); Red Blood Cell Count 4.62 M/mm3 (3.80-5.20); White Blood Cell Count 5.63 K/mm3 (4.00-11.30)
[2024-04-25 06:30] LABS: Albumin, Blood 3.9 g/dL (3.4-5.0); Albumin/Globulin Ratio 1.2 (0.8-1.8); Bilirubin, Total 0.6 mg/dL (0.1-1.0); Bun/Creatinine Ratio 12.7 (12.0-20.0); Calcium, Blood 9.1 mg/dL (8.5-10.1); Creatinine, Blood 0.47 mg/dL (0.40-1.00); Globulin, Blood 3.2 g/dL (2.2-4.0); Potassium, Blood 3.5 mmol/L (3.5-5.5); Total Protein, Blood 7.1 g/dL (6.4-8.2)
[2024-04-25] MEDS ORDERED: Bupivacaine 0.5% HCl 5 MG/ML 30MLVIAL ONE (08:42)
[2024-04-25] MEDS ORDERED: propofoL 20 ML IV ONE (10:03)
[2024-04-25] MEDS ORDERED: FentaNYL Citrate 50 MCG/ML 2 ML Injection ONE ×2 (10:03→11:56)
[2024-04-25] MEDS ORDERED: Midazolam HCl 1MG / ML 2ML Vial ONE (10:04)
[2024-04-25] MEDS ORDERED: Ondansetron HCl 2 MG / ML 2ML Vial ONE (10:36)
[2024-04-25] MEDS ORDERED: Dexamethasone Sod Phos 10 MG/ML 1ML VIAL ONE (10:36)
[2024-04-25] MEDS ORDERED: Rocuronium Bromide 10 MG/ML 5ML Injection IV ONE (10:36)
[2024-04-25] MEDS ORDERED: Sugammadex Sodium 200 MG/2ML SDV (100 MG/ML) ONE (10:56)
[2024-04-25] MEDS ORDERED: Metoclopramide HCl 5MG / ML 2ML Vial ONE (11:49)
[2024-04-25] MEDS ORDERED: Estradiol 0.05 MG/24 HR Patch TOP SCH (12:00)
[2024-04-25] MEDS ORDERED: HYDROmorphone HCl/Pf 1MG SYR ONE (12:18)
--- NOTE | 2024-04-25 12:59 | NUR ---
PT BACK TO ROOM 218 FROM PACU. DROWSY, AWAKES AND COMPLAINS OF PAIN BUT FALLS BACK ASLEEP QUICKLY. DRESSINGS C/D/I, VSS. CALL LIGHT IN REACH.
[2024-04-25] MEDS ORDERED: OxyCODONE HCL 5 MG TAB PO PRN (15:45)
--- NOTE | 2024-04-25 17:15 | NUR ---
SHIFT SUMMARY PT IS POD0 FOR A LAP APPY AND TATIANA. DRESSINGS C/D/I. PT HAS BEEN DROWSY ON AND OFF SINCE SURGERY. PAIN CONTROLLED W/ PAIN MEDS PER EMAR. TOLERATING PO SNACKS AND ICE WATER. VSS. PT HAS HAD MANY VISITORS IN THE ROOM SINCE SURGERY. CONT BIOX IN PLACE, O2 SATS >95% ON RA. PT HAS AMBULATED AND VOIDED SINCE SURGERY. CALL LIGHT IN REACH.
[2024-04-25] MEDS ORDERED: OXYC5 PO (17:30)
[2024-04-26 00:16] VITALS: BP 118/67
[2024-04-26 02:36] VITALS: BP 143/84
--- NOTE | 2024-04-26 04:38 | NUR ---
SHIFT SUMMARY; PATIENT AWAKE OFTEN, TALKING ON PHONE. RATES PAIN ALWAYS AT 10. EVEN THOU SHE IS ACTIVE IN BED. INSISTED ON SEEING HER MIDNIGHT VISITOR. VOIDS 900 CLEAR URINE AT A TIME. MILD HTN. NO ZOFRAN NEEDED.
[2024-04-26] MEDS ORDERED: Indocyanine Green 25 MG Vial IV ONE (06:00)
[2024-04-26] MEDS ORDERED: FentaNYL Citrate 50 MCG/ML 2 ML Injection IV PRN (06:35)
[2024-04-26] MEDS ORDERED: OxyCODONE HCL 5 MG TAB PO PRN (06:40)
--- NOTE | 2024-04-26 06:46 | NUR ---
CALLED HOSPITALIST TO REQUEST CHANGES IN PAIN MED. TRYING NOT TO GIVE IV PAIN MEDS, SINCE SHE SHOULD BE READY FOR DISCHARGE THIS MORNING. ORDERS RECEIVED AND CBC TO EVALUATE ANY INTERNAL LEAKING. THAT MAY BE THE CAUSE OF PAIN.
[2024-04-26 06:54] LABS: BASOPHILS ABSOLUTE AUTO 0.02 K/mm3 (0.00-0.23); BASOPHILS PERCENT AUTO 0 % (0-2); EOSINOPHILS ABSOLUTE AUTO 0.02 K/mm3 (0.00-0.68); EOSINOPHILS PERCENT AUTO 0 % (0-6); Hematocrit 35.8 % (33.0-51.0); Hemoglobin 12.4 g/dL (11.5-16.0); IMMATURE GRAN ABSOLUTE AUTO 0.04 K/mm3 (0.00-0.10); IMMATURE GRAN PERCENT AUTO 0 % (0-1); LYMPHOCYTES ABSOLUTE AUTO 1.73 K/mm3 (0.84-5.20); LYMPHOCYTES PERCENT AUTO 16 % (21-46); MONOCYTES ABSOLUTE AUTO 0.96 K/mm3 (0.16-1.47); MONOCYTES PERCENT AUTO 9 % (4-13); Mean Corpuscular HGB 29.7 pg (26.0-34.0); Mean Corpuscular HGB Conc 34.6 g/dL (31.5-36.5); Mean Corpuscular Volume 86 fL (80-100); NEUTROPHILS ABSOLUTE AUTO 8.06 K/mm3 (1.96-9.15); NEUTROPHILS PERCENT AUTO 74 % (41-73); Platelet Count 240 K/mm3 (150-400); RDW Coefficient Variation 12.6 % (11.7-14.2); RDW Standard Deviation 39.3 fL (35.1-46.3); Red Blood Cell Count 4.17 M/mm3 (3.80-5.20); White Blood Cell Count 10.83 K/mm3 (4.00-11.30)
[2024-04-26 07:33] VITALS: BP 126/72
[2024-04-26 12:38] VITALS: BP 117/68
--- NOTE | 2024-04-26 14:22 | NUR ---
SHIFT SUMMARY PT IS POD1 FOR TATIANA AND APPY. DRESSINGS C/D/I. PT AMBULATING, VOIDING, TOLERATING REG DIET W/ SOME INCREASE IN PAIN THAT IS MODERATELY RELIEVED BY PRN PAIN MEDS, PT STATES PAIN IS TOLERABLE AFTER TAKING OXY PER EMAR. VSS. PT HAS FILLED PAIN MED SCRIPT AT HOME ALREADY. DISCHARGE INSTRUCTIONS REVIEWED W PT, COPY GIVEN TO PT. PT DC'D IN STABLE CONDITION TO PRIVATE RIDE HOME VIW WC W/ ALL BELONGINGS IN HAND.
== END 2024-04-26 14:15 | disposition home or self-care (01) ==
LOC: ER 17:32 → SURS 17:33
PROVIDERS: Emergency Medicine; Internal Medicine; Student in an Organized Health Care Education/Training Program; ADMIT Surgery
PROC: 8E0W4CZ Robotic Assisted Procedure of Trunk Region, Percutaneous Endoscopic Approach (ICD-10-PCS; principal; 2024-04-25 09:30)
PROC: 0DTJ0ZZ Resection of Appendix, Open Approach (ICD-10-PCS; principal; 2024-04-25 09:30)
PROC: 0FT44ZZ Resection of Gallbladder, Percutaneous Endoscopic Approach (ICD-10-PCS; principal; 2024-04-25 09:30)
DX: K82.8 Other specified diseases of gallbladder (principal); K82.4 Cholesterolosis of gallbladder; K38.1 Appendicular concretions; I73.00 Raynaud's syndrome without gangrene; F43.10 Post-traumatic stress disorder, unspecified; K90.0 Celiac disease; M79.7 Fibromyalgia; R07.89 Other chest pain; Z79.899 Other long term (current) drug therapy; Z87.891 Personal history of nicotine dependence; Z88.0 Allergy status to penicillin; Z91.012 Allergy to eggs; Z91.013 Allergy to seafood; Z91.030 Bee allergy status; Z91.018 Allergy to other foods
CPT/HCPCS: 36415; 51798; 74177; 76705; 80053; 81003; 81025; 82248; 82947; 83605; 83690; 83735; 85025; 87040; 88304; 93005; 93010; 94762; 96361-59; 96365-59; 96366; 96367; 96374-59; 96375; 96375-59; 96376; 96376-59; 99285-25; A9270; G0378; J0696; J0744; J1100; J1171; J2060; J2250; J2270; J2405; J2704; J2765; J3010; J7030; J7120; Q9967

== ENCOUNTER → 2024-05-18 | Outpatient (CLI) | payer OTHER ==
[~2024-05-18] MED LIST changes: +POTCHL20ER PO
[2024-05-20 21:21] LABS: PANCREATIC ELASTASE,FECAL >800 ug/g (>=100)
== END ==
LOC: LAB SHORT 06:21 → LAB 06:21 → LAB FUT 04-29 07:35 → EDSTATUS 04-29 07:35
PROVIDERS: Physician Assistant
DX: K90.0 Celiac disease (principal); R10.13 Epigastric pain
CPT/HCPCS: 82653

== ENCOUNTER 2024-08-27 16:22 | Emergency (ER) | payer OTHER ==
[~2024-08-27] VITALS: Ht 162.6 cm; Wt 49.0 kg
[2024-08-27] MEDS ORDERED: Ondansetron HCl 2 MG / ML 2ML Vial IV ONE (16:50)
[2024-08-27] MEDS ORDERED: Morphine Sulfate 4 MG/1 ML Injection IV ONE (16:50)
[2024-08-27 17:17] LABS: BASOPHILS ABSOLUTE AUTO 0.03 K/mm3 (0.00-0.23); BASOPHILS PERCENT AUTO 1 % (0-2); EOSINOPHILS ABSOLUTE AUTO 0.08 K/mm3 (0.00-0.68); EOSINOPHILS PERCENT AUTO 1 % (0-6); Hematocrit 39.4 % (33.0-51.0); Hemoglobin 13.6 g/dL (11.5-16.0); IMMATURE GRAN ABSOLUTE AUTO 0.01 K/mm3 (0.00-0.10); IMMATURE GRAN PERCENT AUTO 0 % (0-1); LYMPHOCYTES ABSOLUTE AUTO 2.48 K/mm3 (0.84-5.20); LYMPHOCYTES PERCENT AUTO 41 % (21-46); MONOCYTES PERCENT AUTO 7 % (4-13); Mean Corpuscular HGB 28.9 pg (26.0-34.0); Mean Corpuscular HGB Conc 34.5 g/dL (31.5-36.5); Mean Corpuscular Volume 84 fL (80-100); Mean Platelet Volume 10.1 fL (9.1-12.4); NEUTROPHILS PERCENT AUTO 50 % (41-73); Platelet Count 303 K/mm3 (150-400); RDW Coefficient Variation 13.1 % (11.7-14.2); RDW Standard Deviation 39.9 fL (35.1-46.3); Red Blood Cell Count 4.71 M/mm3 (3.80-5.20)
[2024-08-27 17:54] LABS: C-REACTIVE PROTEIN, EXT RANGE <0.290 mg/dL (0.000-0.300)
[2024-08-27 17:57] LABS: Alanine Aminotransfer (ALT/SGP 19 U/L (12-78); Albumin, Blood 4.3 g/dL (3.4-5.0); Albumin/Globulin Ratio 1.3 (0.8-1.8); Alk Phos 74 U/L (50-136); Anion Gap 7 mmol/L (3-11); Aspartate Aminotrans (AST/SGOT 11 U/L (12-37); Bilirubin, Total 0.3 mg/dL (0.1-1.0); Blood Urea Nitrogen 8 mg/dL (8-24); Bun/Creatinine Ratio 14.2 (12.0-20.0); CO2, Blood 27 mmol/L (21-32); Calcium, Blood 9.3 mg/dL (8.5-10.1); Chloride, Blood 107 mmol/L (98-108); Creatinine, Blood 0.56 mg/dL (0.40-1.00); Globulin, Blood 3.2 g/dL (2.2-4.0); Glomerular Filtration Rate 115 (60-); Glucose, Blood 88 mg/dL (70-99); Potassium, Blood 3.7 mmol/L (3.5-5.5); Sodium, Blood 137 mmol/L (136-145); Total Protein, Blood 7.5 g/dL (6.4-8.2)
[2024-08-27] MEDS ORDERED: Midazolam HCl 1MG / ML 2ML Vial IV ONE (19:00)
[2024-08-27 20:43] LABS: Automated CSF WBC Count 0.003 K/mm3 (0-5)
[2024-08-27 20:45] LABS: Appearance, CSF Clear (Clear); Color, CSF No Color (No Color); WBC Count, CSF 3 /mm3 (0-5)
[2024-08-27] MEDS ORDERED: Ketorolac Tromethamine 30mg Vial IV ONE (20:45)
[2024-08-27 21:02] LABS: RBC Count, CSF 345 /mm3 (0-0)
[2024-08-27 21:03] LABS: Glucose, CSF 53 mg/dL (40-70)
[2024-08-27 21:07] LABS: Appearance, CSF Clear (Clear); Color, CSF No Color (No Color)
[2024-08-27 21:08] LABS: RBC Count, CSF 3 /mm3 (0-0); WBC Count, CSF 0 /mm3 (0-5)
[2024-08-27 21:37] VITALS: BP 121/79
[2024-08-27 22:03] LABS: Cryptococcus Neoformans/Gattii Not Detected (NOT DETECT); Enterovirus Not Detected (NOT DETECT); Escherichia Coli K1 Not Detected (NOT DETECT); Haemophilus Influenza Not Detected (NOT DETECT); Herpes Simplex Virus 1 Not Detected (NOT DETECT); Herpes Simplex Virus 2 Not Detected (NOT DETECT); Human Herpesvirus 6 Not Detected (NOT DETECT); Human Parechovirus Not Detected (NOT DETECT); Listeria Monocytogenes Not Detected (NOT DETECT); Neisseria Meningitidis Not Detected (NOT DETECT); Streptococcus Agalactiae Not Detected (NOT DETECT); Streptococcus Pneumoniae Not Detected (NOT DETECT); Varicella Zoster Virus Not Detected (NOT DETECT)
[2024-08-27] MEDS ORDERED: Neurontin 100100 MG PO (22:11)
[2024-08-27] MEDS ORDERED: RX Prepack 6 Tabs Oxycodone 5mg UD ONE (22:25)
== END 2024-08-27 22:36 | disposition home or self-care (01) ==
LOC: ER 16:22
PROVIDERS: Emergency Medicine
DX: R51.9 Headache, unspecified (principal); F43.10 Post-traumatic stress disorder, unspecified; Z79.899 Other long term (current) drug therapy; Z91.030 Bee allergy status; Z91.012 Allergy to eggs; Z91.013 Allergy to seafood; Z91.018 Allergy to other foods; Z88.0 Allergy status to penicillin
CPT/HCPCS: 62270; 70450; 80053; 82945; 84157; 84703; 85025; 86140; 87070; 87205; 87483; 89051; 96374-59; 96375-59; 99284-25; A9270; J1885; J2250; J2270; J2405

== ENCOUNTER 2024-08-28 16:45 | Emergency (ER) | payer OTHER ==
[~2024-08-28] VITALS: Ht 172.7 cm; Wt 63.5 kg
[~2024-08-28 16:45] MED LIST changes: +Neurontin 100100 MG PO
[2024-08-28] MEDS ORDERED: Ondansetron HCl 2 MG / ML 2ML Vial IV ONE ×2 (17:55→20:40)
[2024-08-28] MEDS ORDERED: Metoclopramide HCl 5MG / ML 2ML Vial IV ONE ×2 (18:25→20:40)
[2024-08-28] MEDS ORDERED: DiphenhydrAMINE HCl 50 MG/ML 1ML Vial IV ONE ×2 (18:25→20:40)
[2024-08-28 19:25] LABS: Hematocrit 42.3 % (33.0-51.0); Hemoglobin 14.4 g/dL (11.5-16.0); Mean Corpuscular HGB 29.6 pg (26.0-34.0); Mean Corpuscular Volume 87 fL (80-100); Mean Platelet Volume 10.1 fL (9.1-12.4); Platelet Count 267 K/mm3 (150-400); RDW Coefficient Variation 13.3 % (11.7-14.2); RDW Standard Deviation 41.6 fL (35.1-46.3); Red Blood Cell Count 4.87 M/mm3 (3.80-5.20); White Blood Cell Count 6.27 K/mm3 (4.00-11.30)
[2024-08-28 19:46] LABS: BASOPHILS PERCENT MAN 0 % (0-2); EOSINOPHILS PERCENT MAN 0 % (0-6); LYMPHOCYTES ABSOLUTE MAN 0.81 K/mm3 (0.84-5.20); LYMPHOCYTES PERCENT MAN 13 % (21-46); MONOCYTES ABSOLUTE MAN 0.12 K/mm3 (0.16-1.47); MONOCYTES PERCENT MAN 2 % (4-13); NEUTROPHILS ABSOLUTE MAN 5.32 K/mm3 (1.96-9.15); SEG NEUTROPHILS PERCENT MAN 85 % (41-73); TOTAL CELLS COUNTED 100
[2024-08-28 19:52] LABS: Alanine Aminotransfer (ALT/SGP 40 U/L (12-78); Albumin, Blood 4.4 g/dL (3.4-5.0); Albumin/Globulin Ratio 1.2 (0.8-1.8); Alk Phos 67 U/L (50-136); Anion Gap 13 mmol/L (3-11); Aspartate Aminotrans (AST/SGOT 27 U/L (12-37); Bilirubin, Total 0.7 mg/dL (0.1-1.0); Blood Urea Nitrogen 10 mg/dL (8-24); Bun/Creatinine Ratio 21.4 (12.0-20.0); CO2, Blood 22 mmol/L (21-32); Calcium, Blood 9.7 mg/dL (8.5-10.1); Chloride, Blood 108 mmol/L (98-108); Creatinine, Blood 0.47 mg/dL (0.40-1.00); Globulin, Blood 3.6 g/dL (2.2-4.0); Glomerular Filtration Rate 120 (60-); Glucose, Blood 121 mg/dL (70-99); Potassium, Blood 4.2 mmol/L (3.5-5.5); Sodium, Blood 139 mmol/L (136-145)
[2024-08-28] MEDS ORDERED: Ondansetron HCl 2 MG / ML 2ML Vial ONE (20:53)
[2024-08-28] MEDS ORDERED: Droperidol 5 mg/2 ml Vial IV ONE (22:50)
[2024-08-28] MEDS ORDERED: Ketorolac Tromethamine 30mg Vial IV ONE (22:55)
[2024-08-28 23:12] LABS: C-REACTIVE PROTEIN, EXT RANGE <0.290 mg/dL (0.000-0.300)
[2024-08-29] MEDS ORDERED: RX Prepack 2 Tabs Ondansetron ODT 4MG UD ONE (01:40)
[2024-08-29 01:56] VITALS: BP 101/64
== END 2024-08-29 02:14 | disposition home or self-care (01) ==
LOC: ER 16:45
PROVIDERS: Student in an Organized Health Care Education/Training Program
DX: R51.9 Headache, unspecified (principal); R10.13 Epigastric pain; R11.2 Nausea with vomiting, unspecified; Z91.012 Allergy to eggs; Z91.030 Bee allergy status; Z88.0 Allergy status to penicillin; Z91.013 Allergy to seafood; Z79.2 Long term (current) use of antibiotics; Z79.899 Other long term (current) drug therapy; Z79.84 Long term (current) use of oral hypoglycemic drugs; F43.10 Post-traumatic stress disorder, unspecified
CPT/HCPCS: 71046; 74177; 80053; 83690; 84484; 84703; 85025; 85651; 86140; 93005; 93010; 96374-59; 96375; 99285-25; A9270; J1200; J1790; J1885; J2405; J2765; Q9967

== ENCOUNTER 2024-09-03 15:30 | Emergency (ER) | payer OTHER ==
[~2024-09-03] VITALS: Ht 162.6 cm; Wt 52.2 kg
[2024-09-03 15:41] VITALS: BP 148/95
[2024-09-03 16:32] LABS: Albumin, Blood 4.3 g/dL (3.4-5.0); Albumin/Globulin Ratio 1.4 (0.8-1.8); Bilirubin, Total 0.4 mg/dL (0.1-1.0); Bun/Creatinine Ratio 17.6 (12.0-20.0); Creatinine, Blood 0.51 mg/dL (0.40-1.00); Potassium, Blood 4.6 mmol/L (3.5-5.5); Total Protein, Blood 7.3 g/dL (6.4-8.2)
[2024-09-03 17:18] LABS: BASOPHILS ABSOLUTE AUTO 0.04 K/mm3 (0.00-0.23); BASOPHILS PERCENT AUTO 1 % (0-2); EOSINOPHILS ABSOLUTE AUTO 0.05 K/mm3 (0.00-0.68); EOSINOPHILS PERCENT AUTO 1 % (0-6); Hematocrit 40.4 % (33.0-51.0); IMMATURE GRAN ABSOLUTE AUTO 0.03 K/mm3 (0.00-0.10); IMMATURE GRAN PERCENT AUTO 0 % (0-1); LYMPHOCYTES ABSOLUTE AUTO 2.56 K/mm3 (0.84-5.20); LYMPHOCYTES PERCENT AUTO 29 % (21-46); MONOCYTES ABSOLUTE AUTO 0.43 K/mm3 (0.16-1.47); MONOCYTES PERCENT AUTO 5 % (4-13); Mean Corpuscular HGB 29.4 pg (26.0-34.0); Mean Corpuscular HGB Conc 34.7 g/dL (31.5-36.5); Mean Corpuscular Volume 85 fL (80-100); Mean Platelet Volume 10.3 fL (9.1-12.4); NEUTROPHILS ABSOLUTE AUTO 5.76 K/mm3 (1.96-9.15); NEUTROPHILS PERCENT AUTO 65 % (41-73); Platelet Count 340 K/mm3 (150-400); RDW Coefficient Variation 13.4 % (11.7-14.2); RDW Standard Deviation 41.6 fL (35.1-46.3); Red Blood Cell Count 4.76 M/mm3 (3.80-5.20); White Blood Cell Count 8.87 K/mm3 (4.00-11.30)
== END 2024-09-03 16:43 | disposition left against medical advice (07) ==
LOC: ER 15:30
PROVIDERS: Student in an Organized Health Care Education/Training Program
DX: M54.2 Cervicalgia (principal); M54.9 Dorsalgia, unspecified; Z53.29 Procedure and treatment not carried out because of patient's decision for other reasons
CPT/HCPCS: 80053; 85025; 93005; 93010; 99282-25